=== PATIENT | male | born 1935 | race Caucasian/White ===

== ENCOUNTER → 2021-02-05 | Outpatient (CLI) | payer MEDICARE ==
[~2021-02-05] MED LIST: ASPIR 8181 MG PO; DYAZIDE 37.5/251 EA PO; ELIQUIS 2.5 MG2.5 MG PO; ELIQUIS2.5 MG PO; FISH OIL 1,0001 EAC5 PO; FLOMAX0.4 MG PO; NORCO 10-325 T1 EACH PO; NORVASC10 MG PO; PRINIVIL20 MG PO; PROSCAR5 MG PO; PROTONIX40 MG PO
== END ==
LOC: KOH-I 13:47
DX: R07.81 Pleurodynia (principal); S22.31XA Fracture of one rib, right side, initial encounter for closed fracture; X58.XXXA Exposure to other specified factors, initial encounter
CPT/HCPCS: 71101

== ENCOUNTER → 2021-09-12 | Outpatient (CLI) | payer MEDICARE | LOC: KOH-I 14:19 | DX: R06.02 Shortness of breath (principal) | CPT/HCPCS: 71046 ==

== ENCOUNTER → 2021-09-19 | Outpatient (CLI) | payer MEDICARE | LOC: ECHO 08:40 | DX: R06.02 Shortness of breath (principal) | CPT/HCPCS: ECHO; 93306 ==

== ENCOUNTER → 2021-12-08 | Outpatient (CLI) | payer MEDICARE | LOC: HEART 5 14:37 | DX: R00.2 Palpitations (principal) ==